=== PATIENT | male | born 1970 | race Caucasian/White ===

== ENCOUNTER 2016-11-03 21:57 | Emergency (ER) | payer BC, MEDICAID ==
[2016-11-03 22:26] VITALS: BP 147/84
--- NOTE | 2016-11-03 23:06 | EDM.PDOC ---
ED HPI Skin/Rash - General Chief Complaint: Skin Complaint Stated Complaint: POSS PARASITE INFECTION IN MOUTH HANDS FEET Time Seen by Provider: 11/03/16 22:18 Source: Reports: Patient, RN notes reviewed - History of Present Illness INITIAL COMMENTS - FREE TEXT/NARRATIVE: patient comes in with concern about "parasites". States he started a new job a few weeks ago. 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 He does wear gloves. His hands have numerous areas of irritated and inflamed skin. He is convinced that this is all secondary to "parasites". He also shows me areas of chapped inflamed skin on his feet. He is convinced that also is all because of "parasites". He also has numerous scabbed lesions of his face primarily around his mouth and on his chin. He states that is all developed over the past 2 or 3 weeks. Also has mild sore throat. no fever or chills - Related Data Allergies Allergy/AdvReac Type Severity Reaction Status Date / Time penicillin Allergy Rash Verified 11/03/16 22:11 venom-honey bee Allergy Anaphylactic Verified 11/03/16 22:11 [bee venom (honey bee)] Shock Home Meds: Ambulatory Orders Medication Instructions Recorded Confirmed LORazepam [Ativan] 0.5 mg PO TID 11/03/16 11/03/16 Doxycycline [Vibramycin] 100 mg PO BID #20 tablet 11/04/16 Mupirocin Oint [Bactroban Oint] 22 gm TOP TID #1 tube 11/04/16 Past Medical History Cardiovascular History: Reports: Hypertension Gastrointestinal History: Reports: Chronic diarrhea - Infectious Disease History Infectious Disease History: Reports: Chicken pox - Past Surgical History Musculoskeletal Surgical History: Reports: Carpal tunnel, Shoulder surgery Social & Family History - Tobacco Use Smoking Status *Q: Never Smoker Years of Tobacco use: 20 Packs/Tins Daily: 1 Second Hand Smoke Exposure: No - Caffeine Use Caffeine Use: Reports: Energy drinks - Recreational Drug Use Recreational Drug Use: No ED ROS GENERAL - Review of Systems Review Of Systems: See Below Constitutional: Denies: fever, chills HEENT: Reports: Throat pain (mild) Respiratory: Denies: shortness of breath Cardiovascular: Denies: Chest pain GI/Abdominal: Denies: Abdominal pain, Nausea, Vomiting Musculoskeletal: Reports: no symptoms Skin: Reports: other (areas of discoloration and inflammation hands and feet primarily but also numerous scabs and sores of his face primarily around the mouth and chin) Neurological: Reports: no symptoms ED EXAM, SKIN/RASH Exam: See Below General Appearance: alert, anxious Eye Exam: bilateral eye: PERRL Throat/Mouth: Normal inspection, Normal oropharynx Head: other (multiple scabbed excoriated lesions of his face around the mouth and also over the anterior chin) Respiratory/Chest: no respiratory distress, lungs clear, normal breath sounds Cardiovascular: regular rate, rhythm Skin: Warm, Dry, Other Course - Vital Signs Last Recorded V/S: Last Vital Signs Temp 97.8 F 11/03/16 22:14 Pulse 97 11/03/16 22:14 Resp 18 11/03/16 22:14 BP 147/84 H 11/03/16 22:25 Pulse Ox 100 11/03/16 22:14 - Orders/Labs/Meds Orders: Active Orders 24 hr Category Date Time Status CULTURE STREP A CONFIRMATION [] Stat Lab 11/03/16 23:20 Results STREP SCRN A RAPID W CULT CONF [RM] Stat Lab 11/03/16 23:20 Results Labs: Laboratory Tests 11/03/16 11/03/16 11/03/16 Range/Units 23:03 23:03 23:38 WBC 11.60 H (4.23-9.07) K/mm3 RBC 4.88 (4.63-6.08) M/mm3 Hgb 14.6 (13.7-17.5) gm/L Hct 43.9 (40.1-51.0) % MCV 90.0 (79.0-92.2) fl MCH 29.9 (25.7-32.2) pg MCHC 33.3 (32.2-35.5) g/dl RDW Std Deviation 46.4 H (35.1-43.9) fL Plt Count 226 (163-337) K/mm3 MPV 9.7 (9.4-12.3) fl Neut % (Auto) 65.0 (34.0-67.9) % Lymph % (Auto) 23.2 (21.8-53.1) % [place] % (Auto) 9.2 (5.3-12.2) % Eos % (Auto) 2.0 (0.8-7.0) Baso % (Auto) 0.4 (0.1-1.2) % Neut # 7.54 H (1.78-5.38) K/mm3 Lymph # 2.69 (1.32-3.57) K/mm3 [place] # 1.07 H (0.30-0.82) K/mm3 Eos # 0.23 (0.04-0.54) K/mm3 Baso # 0.05 (0.01-0.08) K/mm3 Sodium 141 (136-145) mEq/L Potassium 3.6 (3.5-5.1) mEq/L Chloride 106 (98-107) mEq/L Carbon Dioxide 26 (21-32) mEq/L Anion Gap 12.6 (5-15) BUN 15 (7-18) mg/dL Creatinine 1.1 (0.7-1.3) mg/dL Est Cr Clr Drug Dosing 88.42 mL/min Estimated GFR (MDRD) > 60 (>60) mL/min BUN/Creatinine Ratio 13.6 L (14-18) Glucose 167 H (74-106) mg/dL Calcium 8.8 (8.5-10.1) mg/dL Total Bilirubin 0.2 (0.2-1.0) mg/dL AST 33 (15-37) U/L ALT 48 (16-63) U/L Alkaline Phosphatase 76 (46-116) U/L Total Protein 7.4 (6.4-8.2) g/dl Albumin 3.8 (3.4-5.0) g/dl Globulin 3.6 gm/dL Albumin/Globulin Ratio 1.1 (1-2) Urine Color (Yellow) Urine Appearance (Clear) Urine pH (5.0-8.0) Ur Specific [place] (1.005-1.030) Urine Protein (Negative) Urine Glucose (UA) (Negative) Urine Ketones (Negative) Urine Occult Blood (Negative) Urine Nitrite (Negative) Urine Bilirubin (Negative) Urine Urobilinogen (0.2-1.0) Ur Leukocyte Esterase (Negative) Urine Opiates Screen Negative (NEGATIVE) Ur Buprenorphine Scrn Negative (NEGATIVE) Ur Oxycodone Screen Negative (NEGATIVE) Urine Methadone Screen Negative (NEGATIVE) Ur Propoxyphene Screen Negative (NEGATIVE) Ur Barbiturates Screen Negative (NEGATIVE) Ur Tricyclics Screen Negative (NEGATIVE) Ur Phencyclidine Scrn Negative (NEGATIVE) Ur Amphetamine Screen Presumptive positive H (NEGATIVE) U Methamphetamines Scrn Presumptive positive H (NEGATIVE) U Benzodiazepines Scrn Presumptive positive H (NEGATIVE) U Cocaine Metab Screen Negative (NEGATIVE) U Marijuana (THC) Screen Negative (NEGATIVE) Ethyl Alcohol 0.00 (0.00) gm% 11/03/16 Range/Units 23:38 WBC (4.23-9.07) K/mm3 RBC (4.63-6.08) M/mm3 Hgb (13.7-17.5) gm/L Hct (40.1-51.0) % MCV (79.0-92.2) fl MCH (25.7-32.2) pg MCHC (32.2-35.5) g/dl RDW Std Deviation (35.1-43.9) fL Plt Count (163-337) K/mm3 MPV (9.4-12.3) fl Neut % (Auto) (34.0-67.9) % Lymph % (Auto) (21.8-53.1) % [place] % (Auto) (5.3-12.2) % Eos % (Auto) (0.8-7.0) Baso % (Auto) (0.1-1.2) % Neut # (1.78-5.38) K/mm3 Lymph # (1.32-3.57) K/mm3 [place] # (0.30-0.82) K/mm3 Eos # (0.04-0.54) K/mm3 Baso # (0.01-0.08) K/mm3 Sodium (136-145) mEq/L Potassium (3.5-5.1) mEq/L Chloride (98-107) mEq/L Carbon Dioxide (21-32) mEq/L Anion Gap (5-15) BUN (7-18) mg/dL Creatinine (0.7-1.3) mg/dL Est Cr Clr Drug Dosing mL/min Estimated GFR (MDRD) (>60) mL/min BUN/Creatinine Ratio (14-18) Glucose (74-106) mg/dL Calcium (8.5-10.1) mg/dL Total Bilirubin (0.2-1.0) mg/dL AST (15-37) U/L ALT (16-63) U/L Alkaline Phosphatase (46-116) U/L Total Protein (6.4-8.2) g/dl Albumin (3.4-5.0) g/dl Globulin gm/dL Albumin/Globulin Ratio (1-2) Urine Color Yellow (Yellow) Urine Appearance Clear (Clear) Urine pH 6.5 (5.0-8.0) Ur Specific [place] > or = 1.030 (1.005-1.030) Urine Protein 2+ H (Negative) Urine Glucose (UA) Negative (Negative) Urine Ketones Trace H (Negative) Urine Occult Blood Negative (Negative) Urine Nitrite Negative (Negative) Urine Bilirubin Negative (Negative) Urine Urobilinogen 0.2 (0.2-1.0) Ur Leukocyte Esterase Negative (Negative) Urine Opiates Screen (NEGATIVE) Ur Buprenorphine Scrn (NEGATIVE) Ur Oxycodone Screen (NEGATIVE) Urine Methadone Screen (NEGATIVE) Ur Propoxyphene Screen (NEGATIVE) Ur Barbiturates Screen (NEGATIVE) Ur Tricyclics Screen (NEGATIVE) Ur Phencyclidine Scrn (NEGATIVE) Ur Amphetamine Screen (NEGATIVE) U Methamphetamines Scrn (NEGATIVE) U Benzodiazepines Scrn (NEGATIVE) U Cocaine Metab Screen (NEGATIVE) U Marijuana (THC) Screen (NEGATIVE) Ethyl Alcohol (0.00) gm% - Re-Assessments/Exams Free Text/Narrative Re-Assessment/Exam: 11/04/16 02:55. labs are as documented. He is very fixated with the idea that his skin symptoms are all related to "parasites. I tried very hard to reason with him that he has not had parasites. He brought some debris and skin scrapings in with him and a small container. I have had one of our lab techs look at that under microscope. They saw what looked like tiny pieces of gravel and skin scrapings, nothing that looked parasitic. 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 He also was observed to be picking at his skin repetitively. He has what looks like atopic dermatitis of his face and there likely is a component of impetigo as well. Discharge instructions as documented Departure - Departure Time of Disposition: 00:16 Disposition: Home, Self-Care 01 Condition: fair Clinical Impression: Impetigo Hand dermatitis Qualifiers: Laterality: bilateral Qualified Code(s): L30.9 - Dermatitis, unspecified Atopic dermatitis Qualifiers: Atopic dermatitis type: unspecified Qualified Code(s): L20.9 - Atopic dermatitis, unspecified Prescriptions: Doxycycline [Vibramycin] 100 mg PO BID #20 tablet Mupirocin Oint [Bactroban Oint] 22 gm TOP TID #1 tube Instructions: Hand Dermatitis, [id number], Impetigo, Adult Referrals: PCP,None [Primary Care Provider] - Forms: ED Department Discharge Additional Instructions: doxycycline antibiotic as prescribed, Atrovent ointment to sores of face and hands twice daily, [facility] in about 2-3 days for recheck, return to ED as needed - My Orders Last 24 Hours: My Active Orders 11/03/16 23:20 CULTURE STREP A CONFIRMATION [RM] Stat STREP SCRN A RAPID W CULT CONF [] Stat - Assessment/Plan Last 24 Hours: My Active Orders 11/03/16 23:20 CULTURE STREP A CONFIRMATION [RM] Stat STREP SCRN A RAPID W CULT CONF [RM] Stat
== END 2016-11-04 00:46 | disposition home or self-care (01) ==
LOC: JD.ED 21:57
DX: L28.0 Lichen simplex chronicus (principal); I10 Essential (primary) hypertension; Z98.890 Other specified postprocedural states; Z88.0 Allergy status to penicillin; Z91.030 Bee allergy status
CPT/HCPCS: 36415; 80053; 80306; 81003; 85025; 87081; 87430; 99283; G0480

== ENCOUNTER 2018-03-10 21:48 | Emergency (ER) | payer MEDICAID ==
[2018-03-10 21:58] VITALS: BP 197/89
--- NOTE | 2018-03-10 22:46 | EDM.PDOC ---
ED HPI GENERAL MEDICAL PROBLEM - General Chief Complaint: Skin Complaint Stated Complaint: PAINFUL/ITCHY RASH ON BOTH LEGS Time Seen by Provider: 03/10/18 22:17 Source of Information: Reports: Patient History Limitations: Reports: No Limitations - History of Present Illness INITIAL COMMENTS - FREE TEXT/NARRATIVE: Patient is a 47-year-old male who presents emergency Department with a rash over his lower extremities. 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 He thinks he has poison n[place]. He states it itches really bad and is worse in the areas where he sweats the most. He has not used any home remedies for this condition currently. He has had this rash for approximately one week. Onset: Sudden Duration: Week(s): (1) Location: Reports: Upper Extremity, Left, Lower Extremity, Left, Lower Extremity , Right Quality: Reports: Burning Severity: Moderate Improves with: Reports: None Context: Reports: Other (work) Associated Symptoms: Reports: Rash bilateral lower extremities Pain Score (Numeric/FACES): 5 - Related Data Allergies Allergy/AdvReac Type Severity Reaction Status Date / Time penicillin Allergy Rash Verified 03/10/18 21:58 venom-honey bee Allergy Anaphylactic Verified 03/10/18 21:58 [bee venom (honey bee)] Shock Home Meds: Home Meds Hydrocortisone/Aloe Vera [Hydrocortisone-Aloe 0.5% Cream] 28.4 gm TP BID #1 cream..g. 03/10/18 [Rx] hydrOXYzine HCl [hydrOXYzine] 50 mg PO Q8H #30 tab 03/10/18 [Rx] Past Medical History Cardiovascular History: Reports: Hypertension Gastrointestinal History: Reports: Chronic Diarrhea - Infectious Disease History Infectious Disease History: Reports: Chicken Pox - Past Surgical History Musculoskeletal Surgical History: Reports: Carpal Tunnel, Shoulder Surgery Social & Family History - Family History Family Medical History: Noncontributory - Tobacco Use Smoking Status *Q: Current Every Day Smoker Years of Tobacco use: 25 Packs/Tins Daily: 0.5 - Caffeine Use Caffeine Use: Reports: None - Recreational Drug Use Recreational Drug Use: No ED ROS GENERAL - Review of Systems Review Of Systems: See Below Constitutional: Reports: No Symptoms HEENT: Reports: No Symptoms Respiratory: Reports: No Symptoms Cardiovascular: Reports: No Symptoms Endocrine: Reports: No Symptoms GI/Abdominal: Reports: No Symptoms : Reports: No Symptoms Musculoskeletal: Reports: No Symptoms Skin: Reports: Rash, Erythema Neurological: Reports: No Symptoms Psychiatric: Reports: No Symptoms Hematologic/Lymphatic: Reports: No Symptoms Immunologic: Reports: No Symptoms ED EXAM, SKIN/RASH Exam: See Below Exam Limited By: No Limitations General Appearance: Alert, WD/WN, Mild Distress Ears: Normal External Exam, Hearing Grossly Normal Nose: Normal Inspection, No Blood Throat/Mouth: Normal Inspection, Normal Lips, Normal Teeth, Normal Gums, Normal Oropharynx, Normal Voice, No Airway Compromise Head: Atraumatic, Normocephalic Neck: Normal Inspection, Supple, Non-Tender, Full Range of Motion Respiratory/Chest: No Respiratory Distress, Lungs Clear, Normal Breath Sounds, No Accessory Muscle Use, Chest Non-Tender Cardiovascular: Normal Peripheral Pulses, Regular Rate, Rhythm, No Edema, No Murmur GI/Abdominal: Normal Bowel Sounds, Soft, Non-Tender, No Organomegaly, No Distention, No Abnormal Bruit, No Mass Extremities: Redness, Other (rash) Neurological: Alert, Oriented, CN II-XII Intact, Normal Cognition Psychiatric: Normal Affect, Normal Mood Skin: Erythema, Excoriations, Rash. No: Lymphangitis, Mottled, Pallor, Petechiae Location, Skin: Lower Extremity, Right, Lower Extremity, Left Characteristics: Maculopapular, Fine, Confluent, Patchy, Vesicular, Erythematous Associated features: Scaling, Inflammation, Crusting Course - Vital Signs Last Recorded V/S: Last Vital Signs Temp 99.1 F 03/10/18 21:55 Pulse 76 03/10/18 21:55 Resp 18 03/10/18 21:55 BP 197/89 H 03/10/18 21:55 Pulse Ox 98 03/10/18 21:55 Departure - Departure Time of Disposition: 22:50 Disposition: Home, Self-Care 01 Condition: Good Clinical Impression: Contact dermatitis due to poison n[place] Contact dermatitis Qualifiers: Contact dermatitis type: unspecified Contact dermatitis trigger: non-food plants Qualified Code(s): L25.5 - Unspecified contact dermatitis due to plants, except food - Discharge Information *PRESCRIPTION DRUG MONITORING PROGRAM REVIEWED*: Not Applicable *COPY OF PRESCRIPTION DRUG MONITORING REPORT IN PATIENT NURIA: Not Applicable Instructions: Poison [place] Dermatitis, Poison [place] Dermatitis, [id number] Referrals: Monie Kang, [employer] [Primary Care Provider] - Additional Instructions: #1. Apply calamine lotion to areas of rash for releaf of itching #2. Soak in oatmeal baths for relief of itching and rash #3. Use topical hydrocortisone prescription as prescribed #4. Use Atarax prescription as prescribed for itching #5. Be sure to scrub under your nails when bathing to prevent the spread of the toxins or oils to other parts of her body when scratching #6. Follow-up with your primary care doctor in 3-5 days
== END 2018-03-10 23:08 | disposition home or self-care (01) ==
LOC: JD.ED 21:48
DX: L25.5 Unspecified contact dermatitis due to plants, except food (principal); F17.210 Nicotine dependence, cigarettes, uncomplicated; Z88.0 Allergy status to penicillin; Z91.048 Other nonmedicinal substance allergy status
CPT/HCPCS: 99283

== ENCOUNTER 2020-07-23 04:21 | Emergency (ER) | payer SELFPAY ==
[2020-07-23 04:34] VITALS: BP 153/98; PULSE 88
[2020-07-23] MEDS ORDERED: Ondansetron 4 MG Tab.DIS PO ONE (04:39)
[2020-07-23] MEDS ORDERED: Acetaminophen/oxyCODONE 325-5 MG Tab PO ONE (04:39)
[2020-07-23] MEDS ORDERED: Lidocaine 1% 10 ML MDV INJECT ONE (04:40)
[2020-07-23] MEDS ORDERED: Diphtheria,Pertussis(Acell),Tetanus Vaccine 0.5 ML Syringe IM ONE (04:43)
--- NOTE | 2020-07-23 04:45 | EDM.PDOC ---
ED HPI GENERAL MEDICAL PROBLEM - General Chief Complaint: Laceration Stated Complaint: CUT HEAD ON A BOOKCASE Time Seen by Provider: 07/23/20 04:30 Source of Information: Reports: Patient History Limitations: Reports: No Limitations - History of Present Illness INITIAL COMMENTS - FREE TEXT/NARRATIVE: 49-year-old male presents to the ED with a 5 cm laceration to his left vertex of scalp primarily parietal to occipital area. Patient states he struck the corner of a bookcase at home hard with his head. States he seen stars and it nearly knocked him to the floor. Then he started to bleed heavily from the laceration and could not tell how big it was or how long it was because of its position. He is not sure about his last tetanus toxoid. Bleeding has now stopped. Wound will require suture repair. Second problem is swelling and increased pain right third finger over the PIP joint. He reports he had a callus on the volar aspect of the finger for a long period of time that is just starting to heal up. Clinically it appears that the finger has become infected near the PIP joint. Onset: Today, Sudden Onset Date: 07/23/20 Onset Time: 04:05 Duration: Minutes: Location: Reports: Head (Posterior vertex scalp laceration.), Upper Extremity, R ight (Pain and swelling right third finger PIP joint) Quality: Reports: Ache, Burning, Throbbing (Throbbing pain scalp and right) Severity: Moderate (third finger.) Improves with: Reports: Other (Right third finger pain is worse with movement.) Worsens with: Reports: Other (Laceration is stopped bleeding at this time) Context: Reports: Trauma (Blunt force trauma on the corner of a book shelf resulted in a linear laceration parieto-occipital vertex of scalp.). Denies: Ac tivity, Exercise, Lifting, Sick Contact Associated Symptoms: Reports: Headaches, Malaise. Denies: Confusion, Chest Pain, Cough, cough w sputum, Nausea/Vomiting - Related Data Allergies Allergy/AdvReac Type Severity Reaction Status Date / Time penicillin Allergy Rash Verified 07/23/20 04:34 venom-honey bee Allergy Anaphylactic Verified 07/23/20 04:34 [bee venom (honey bee)] Shock Home Meds: Home Meds Hydrocortisone/Aloe Vera [Hydrocortisone-Aloe 0.5% Cream] 28.4 gm TP BID #1 cream..g. 03/10/18 [Rx] hydrOXYzine HCL [hydrOXYzine] 50 mg PO Q8H #30 tab 03/10/18 [Rx] Doxycycline [Vibra-Tabs] 100 mg PO Q12HR #20 tab 07/23/20 [Rx] oxyCODONE HCl/Acetaminophen [Percocet 5-325 mg Tablet] 1 - 2 each PO Q4H PRN #15 tablet 07/23/20 [Rx] Past Medical History Cardiovascular History: Reports: Hypertension Gastrointestinal History: Reports: Chronic Diarrhea - Infectious Disease History Infectious Disease History: Reports: Chicken Pox - Past Surgical History Musculoskeletal Surgical History: Reports: Carpal Tunnel, Shoulder Surgery Social & Family History - Family History Family Medical History: No Pertinent Family History - Tobacco Use Tobacco Use Status *Q: Current Every Day Tobacco User Years of Tobacco use: 30 Packs/Tins Daily: 0.5 - Caffeine Use Caffeine Use: Reports: None - Living Situation & Occupation Living situation: Reports: Occupation: Employed ED ROS GENERAL - Review of Systems Review Of Systems: See Below Constitutional: Denies: Fever, Chills, Malaise, Weakness, Fatigue, Decreased Appetite, Weight Loss HEENT: Reports: No Symptoms Respiratory: Reports: No Symptoms Cardiovascular: Reports: No Symptoms Endocrine: Reports: No Symptoms GI/Abdominal: Reports: No Symptoms Musculoskeletal: Reports: Other (Is developed right third finger pain about 2 days ago with marked swelling of the PIP joint. Patient has a callus in the volar PIP crease that is to started to heal. It appears that the wound has become secondarily infected.) Skin: Reports: Other (Swelling and slight erythema around the dorsal PIP joint right third finger) Neurological: Reports: Headache. Denies: Confusion, Numbness, Paresthesia, Pre- Existing Deficit, Seizure, Syncope, Tingling, Tremors, Trouble Speaking, Difficulty Walking, Weakness Psychiatric: Reports: No Symptoms Hematologic/Lymphatic: Reports: No Symptoms Immunologic: Reports: No Symptoms ED EXAM, SKIN/RASH Exam: See Below Exam Limited By: No Limitations General Appearance: Alert, WD/WN, No Apparent Distress, Other Eye Exam: Bilateral Eye: Normal Inspection Ears: Normal External Exam Nose: Normal Inspection Head: Other (Is a linear 5 cm laceration that starts near the posterior vertex of the scalp and travels towards the occiput on the left side. It is mostly over the parietal aspect of the scalp. He does have an abrasion and swelling over the right mastoid process approximately 2.5 cm in diameter as well.) Neck: Normal Inspection, Supple, Non-Tender, Full Range of Motion. No: Lymphadenopathy (L), Lymphadenopathy (R) Respiratory/Chest: No Respiratory Distress, Lungs Clear, Normal Breath Sounds, No Accessory Muscle Use Cardiovascular: Normal Peripheral Pulses, Regular Rate, Rhythm, No Edema, No Murmur, No Rub Peripheral Pulses: 3+: Carotid (L), Carotid (R) Extremities: Other (Patient second problem is marked swelling and pain from the right third finger. Patient has a chronic callus formation over the PIP joint which is distorted to close up. He states he gave it a twist to pop the joint and seemed to develop pain swelling and now redness along the middle phalanx dorsally of the finger. It is painful to fully flex the finger at the PIP joint as well. 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.) Neurological: Alert, Oriented, CN II-XII Intact, Normal Cognition Psychiatric: Anxious Skin: Warm, Dry, Normal Color, Erythema (Sole aspect of the right third finger radial aspect) ED SKIN PROCEDURES - Laceration/Wound Repair Midline Head Appearance: Subcutaneous, Linear, Clean Distal NVT: Neuro & Vascular Intact Anesthetic Type: Local Local Anesthesia - Lidocaine (Xylocaine): 1% Plain Local Anesthetic Volume: 4cc Skin Prep: Saline Closed with: Sutures Lac/Wound length In cm: 5 Suture Size: 4-0 # of Sutures: 10 Suture Type: Prolene Course - Vital Signs Last Recorded V/S: Last Vital Signs Temp 36.1 C 07/23/20 04:31 Pulse 88 07/23/20 04:31 Resp 16 07/23/20 04:31 BP 153/98 H 07/23/20 04:31 Pulse Ox 100 07/23/20 04:31 - Orders/Labs/Meds Orders: Active Orders 24 hr Category Date Time Status Vaccines to be Administered [RC] PER UNIT ROUTINE Care 07/23/20 04:43 Active Fingers Third Digit Rt F7 [CR] Stat Exams 07/23/20 04:40 Taken Meds: Medications Discontinued Medications Generic Name Dose Route Start Last Admin Trade Name Freq PRN Reason Stop Dose Admin Diphtheria/Tetanus/Acell Pertussis 0.5 ml 07/23/20 04:43 07/23/20 04:52 Boostrix IM 07/23/20 04:44 0.5 ml .ONCE ONE Administration Doxycycline Hyclate 200 mg 07/23/20 05:15 Vibramycin PO 07/23/20 05:16 ONETIME ONE Lidocaine HCl 10 ml 07/23/20 04:40 07/23/20 04:45 Xylocaine 1% INJECT 07/23/20 04:41 10 ml ONETIME ONE Administration Ondansetron HCl 4 mg 07/23/20 04:39 07/23/20 04:45 Zofran Odt PO 07/23/20 04:40 4 mg ONETIME ONE Administration Oxycodone/Acetaminophen 2 tab 07/23/20 04:39 07/23/20 04:45 Percocet 325-5 Mg PO 07/23/20 04:40 2 tab ONETIME ONE Administration - Radiology Interpretation Free Text/Narrative:: 49-year-old male presents to the ED with an acute injury to his parietal occipital scalp. Patient states he struck it on the edge of a shelving unit in his RV that he lives in and it came down on his head. Not sure what hit him but it was sharp and he suffered a 5 cm laceration to the vertex of the parietal scalp which travels from midline to the left side. 20 is developed a headache. No nausea. He also suffered a contusion and superficial abrasion to his right mastoid process. Second problem was swelling and pain at the middle phalanx and PIP joint of his right third finger. He states this is been going for the last couple of days. He has a chronic callosity on the volar aspect of the finger over the PIP joint that just ID close up. He states he gave it a twist to pop the joint 2 days ago and developed increased swelling and pain since that time. Exam reveals erythema and marked swelling of the PIP joint and middle phalanx. Suspect early infection developing. Tetanus toxoid was updated today. X-ray of the right third finger reveals no osteomyelitis or bony injury. Patient will be started on doxycycline 100 mg twice daily for the next 10 days to clear up infection in the finger. Scalp laceration was sutured under local anesthetic times 10 sutures. He is to cleanse this area daily with showering. Then apply topical antibiotic such as bacitracin or Polysporin once daily. He will require suture removal in 10 days time. - Re-Assessments/Exams Free Text/Narrative Re-Assessment/Exam: 07/23/20 05:21 X-ray of the right third finger does not reveal any bony injury. Peers to be soft tissue infection developing or cellulitis likely from open callosity along the PIP joint on the volar aspect of the right third finger. Scalp wound was closed using 1% lidocaine and 10 Prolene 4-0 sutures. Sutures will need to be removed in 10 days time. Placed on doxycycline 100 mg twice daily for the next 10 days to clear up infection in his right third finger. Percocet tabs 5/325 mg strength 1 or 2 every 4-6 hours necessary for pain relief of pain right third finger and scalp pain x15 tablets provided. Departure - Departure Time of Disposition: 05:30 Disposition: Home, Self-Care 01 Condition: Fair Clinical Impression: Cellulitis of finger of right hand Laceration of scalp Qualifiers: Encounter type: initial encounter Qualified Code(s): S01.01XA - Laceration without foreign body of scalp, initial encounter - Discharge Information *PRESCRIPTION DRUG MONITORING PROGRAM REVIEWED*: No *COPY OF PRESCRIPTION DRUG MONITORING REPORT IN PATIENT NURIA: No Prescriptions: oxyCODONE HCl/Acetaminophen [Percocet 5-325 mg Tablet] 1 - 2 each PO Q4H PRN #15 tablet PRN Reason: pain relief. Doxycycline [Vibra-Tabs] 100 mg PO Q12HR #20 tab Instructions: Cellulitis, Adult, Laceration Care, Adult, Laceration Care, Adult, [id number] Referrals: PCP,None [Primary Care Provider] - Forms: ED Department Discharge Additional Instructions: Evaluation in the emergency room this morning in regards to injury to the top of your head. Reportedly a shelving unit came down and struck you on the top of the head likely with a very sharp corner. This resulted in a 5 cm or nearly 2 inch laceration to the parietal aspect of your scalp. Wound was clean. It was anesthetized with 1% lidocaine and sutured times 10 sutures to provide wound c losure. Treatment at home is to daily cleanse the area with soap and water. Showering is okay. Then apply topical antibiotic such as bacitracin or Polysporin to the wound once daily to prevent secondary wound infection. You will need to have follow-up in 10 days time to have the stitches removed from your scalp. Second problem identified was swelling and pain over the middle phalanx of the right third finger. It appears that there is a healing callosity on the palmar aspect of the right third finger that may have been an opening for infection development. There is swelling and redness developing along the middle aspect of the right third finger suggesting underlying infection. An x- ray of the finger was carried out and does not reveal any bone infection or underlying injury. Treatment is antibiotic doxycycline 100 mg twice daily for the next 10 days to clear up infection. Expect swelling and pain right third finger to start to improve after 48 hours of antibiotic use. First tablet was provided through the ED this morning. Second tablet to be taken at suppertime tonight. You will need to fill the prescription today when the drug store( [facility] across from [facility] is open --noon to 3 pm. ) for the remainder of your antibiotics. Antibiotic will also prevent any scalp infection from occurring. Use pain pill Percocet 5/325 mg strength -2 tablets every 4-6 hours necessary for pain relief right third finger and scalp. Your tetanus diphtheria and pertussis vaccine was updated today and is good for the next 10 years. Sepsis Event Note (ED) - Evaluation Sepsis Screening Result: No Definite Risk - Focused Exam Vital Signs: Vital Signs Temp Pulse Resp BP Pulse Ox 07/23/20 04:31 36.1 C 88 16 153/98 H 100 - My Orders Last 24 Hours: My Active Orders 07/23/20 04:40 Fingers Third Digit Rt F7 [CR] Stat 07/23/20 04:43 Vaccines to be Administered [RC] PER UNIT ROUTINE - Assessment/Plan Last 24 Hours: My Active Orders 07/23/20 04:40 Fingers Third Digit Rt F7 [CR] Stat 07/23/20 04:43 Vaccines to be Administered [RC] PER UNIT ROUTINE
[2020-07-23] MEDS ORDERED: Doxycycline 100 MG Cap PO ONE (05:15)
--- NOTE | 2020-07-24 12:39 | CR ---
PROCEDURE INFORMATION: Exam: XR Right Finger(s) Exam date and time: 07/23/2020 4:54 AM Age: 49 years old Clinical indication: Pain; Finger(s); Patient HX: Swelling after cracking knuckle on right hand 3rd digit onset 4 days ago, denies any injury TECHNIQUE: Imaging protocol: XR Right fingers. Views: Minimum 2 views. COMPARISON: No relevant prior studies available. FINDINGS: Bones/joints: Bone mineralization is normal. No fracture. On the palmar aspect of the middle phalanx, at the proximal diaphysis, there is a region of possible smooth periosteal reaction, measuring 2 mm in thickness. Joint spacing and alignment are maintained. Soft tissues: There is diffuse soft tissue swelling of the 3rd digit. IMPRESSION: Right hand 3rd digit soft tissue swelling and possible periosteal reaction involving the dorsal aspect of the middle phalanx. Without evident fracture, consideration is given other etiologies. Consider osteomyelitis. If symptoms persist, consider MRI for better characterization. Thank you for allowing us to participate in the care of your patient. Dictated and Authenticated by: Cornelius Fry MD 07/23/2020 6:37 AM Central Time ([place] & [place]) [facility]
== END 2020-07-23 05:36 | disposition home or self-care (01) ==
LOC: JD.ED 04:21
DX: S01.01XA Laceration without foreign body of scalp, initial encounter (principal); I10 Essential (primary) hypertension; L03.011 Cellulitis of right finger; F17.210 Nicotine dependence, cigarettes, uncomplicated; Z88.0 Allergy status to penicillin; Z91.030 Bee allergy status; Z23 Encounter for immunization; W22.8XXA Striking against or struck by other objects, initial encounter; Y92.009 Unspecified place in unspecified non-institutional (private) residence as the place of occurrence of the external cause
CPT/HCPCS: 12002; 73140; 90471; 90715; 99283; A9270; J2001; 99284